=== PATIENT | female | born 1965 | race Caucasian/White ===

== ENCOUNTER 2019-03-03 15:54 | Observation (INO) | payer BC ==
[~2019-03-03] VITALS: Ht 167.6 cm; Wt 74.8 kg
[2019-03-03] MEDS ORDERED: KETOROLAC TROMETHAMINE 30MG/ML ONE (17:32)
[2019-03-03] MEDS ORDERED: SODIUM CHLORIDE 0.9% 1000ML 1,000 ML IV ONE (17:32)
[2019-03-03] MEDS ORDERED: CYCLOBENZAPRINE HCL 10 MG TABLET ONE (17:32)
[2019-03-03 17:35] LABS: EOSINOPHILS % (AUTO) 2.5 % (0.0-8.0); HEMATOCRIT 45.3 % (36-48); LYMPHOCYTES % (AUTO) 26.7 % (21.0-51.0); MEAN CORPUSCULAR HEMOGLOBIN 31.4 pg (27.0-33.0); MEAN CORPUSCULAR HGB CONC 33.7 g/dL (32.0-36.0); MEAN CORPUSCULAR VOLUME 93.2 fL (79-99); MONOCYTES % (AUTO) 5.4 % (3.0-13.0); NEUTROPHILS % (AUTO) 64.4 % (40.0-77.0); NUCLEATED RED BLOOD CELLS 0.1 % (0.0-0.19); PLATELET COUNT (AUTO) 223 K/uL (130-400); RED BLOOD CELL COUNT(AUTO) 4.86 MIL/uL (4.00-5.50); RED CELL DISTRIBUTION WIDTH 14.4 % (11.0-15.5); WHITE BLOOD COUNT (AUTO) 11.8 K/uL (4.8-10.8)
[2019-03-03 17:51] LABS: APPEARANCE,URINE Clear (CLEAR); BILIRUBIN,URINE Negative (NEGATIVE); COLOR,URINE Yellow (YELLOW); GLUCOSE, URINE (UA) Negative (NEGATIVE); KETONES,URINE Negative (NEGATIVE); LEUKOCYTE ESTERASE ,URINE Trace (NEGATIVE); NITRATE,URINE Negative (NEGATIVE); OCCULT BLOOD,URINE Negative (NEGATIVE); PROTEIN,URINE Negative (NEGATIVE); UROBILINOGEN,URINE 0.2 mg/dL (0.2-1.0)
[2019-03-03 17:54] LABS: CREATININE 0.7 mg/dL (0.5-1.5); INR 0.99 (0.85-1.15); PARTIAL THROMBOPLASTIN TIME 31.5 SEC (26.3-35.5); POTASSIUM 4.8 mmol/L (3.5-5.1); PROTHROMBIN TIME 10.4 SEC (9.6-11.6)
[2019-03-03 17:56] LABS: AMMONIA 16 umol/L (11-32)
[2019-03-03 17:56] LABS: AMPHET/METH SCREEN,URINE NEGATIVE (NEGATIVE); BARBITURATE SCREEN, URINE NEGATIVE (NEGATIVE); BENZODIAZEPINES SCREEN,URINE NEGATIVE (NEGATIVE); CANNABINOID SCREEN,URINE NEGATIVE (NEGATIVE); COCAINE SCREEN,URINE NEGATIVE (NEGATIVE); OPIATE SCREEN,URINE NEGATIVE (NEGATIVE); PHENCYCLIDINE SCREEN,URINE NEGATIVE (NEGATIVE)
[2019-03-03 17:58] LABS: BACTERIA,URINE Few /HPF (None Seen); RBC,URINE 0-1 /HPF (0-1); SQUAMOUS EPITHELIAL CELL,UR Few /HPF (0-2)
[2019-03-03 18:05] LABS: ALCOHOL, BLOOD < 3 mg/dL (0-10)
[2019-03-03 18:05] LABS: BILIRUBIN,TOTAL 0.4 mg/dL (0.2-1.0); CRP QUANTITATIVE 9.2 mg/L (0.00-9.0); TOTAL PROTEIN, SERUM 7.5 g/dL (6.0-8.3)
[2019-03-03 18:40] LABS: ERYTHROCYTE SEDIMENTATION RATE 16 MM/HR (0-30)
[2019-03-03] MEDS ORDERED: KETOROLAC TROMETHAMINE 30MG/ML IV PRN (20:00)
[2019-03-03] MEDS: FAMOTIDINE 20MG TAB 20 MG TAB PO SCH (21:00)
[2019-03-03] MEDS ORDERED: IOHEXOL-350 75 ML VIAL IV ONE (21:16)
[2019-03-03] MEDS ORDERED: PREGABALIN 75 MG CAPSULE ONE (22:33)
--- NOTE | 2019-03-03 23:00 | NUR ---
REPORT RECEIVED FROM HANS PEÑA
[2019-03-03 23:34] VITALS: BP 107/65
--- NOTE | 2019-03-03 23:40 | NUR ---
PT ARRIVED FROM ER. PT IS STABLE. NO DISTRESS NOTED. AA03. PERRLA. AT THE MOMENT NOT EXPERIENCING ANY HEADACHE. STATES SHE FEELS BETTER. WAS GIVEN TORADOL AND FLEXOR IN THE ER. TAKES LYRICA AND WAS GIVEN A DOSE IN THE ER. ABLE TO AMBULATE. HOME MEDS RESUMES PER HOSPITALIST RN [employer].
[2019-03-04] MEDS: SODIUM CHLORIDE 0.9% 1000ML 3,000 ML IV SCH ×2 (00:11→04:11)
[2019-03-04] MEDS ORDERED: AEC81 PO (00:44)
[2019-03-04] MEDS ORDERED: DULO60CA64 PO (00:44)
[2019-03-04] MEDS ORDERED: PREG50 PO ×2 (00:44)
[2019-03-04] MEDS ORDERED: ROSU5TAB12 PO (00:44)
[2019-03-04 03:18] VITALS: BP 112/74
[2019-03-04] MEDS ORDERED: CYCLOBENZAPRINE HCL 10 MG TABLET PO ONE (03:30)
[2019-03-04] MEDS ORDERED: CYCLOBENZAPRINE HCL 10 MG TABLET ONE (03:34)
[2019-03-04 04:03] LABS: CREATININE 0.7 mg/dL (0.5-1.5)
[2019-03-04 04:08] LABS: ALBUMIN 3.1 g/dL (3.5-5.0); BILIRUBIN,TOTAL 0.2 mg/dL (0.2-1.0); CRP QUANTITATIVE 7.3 mg/L (0.00-9.0); TOTAL PROTEIN, SERUM 5.8 g/dL (6.0-8.3)
[2019-03-04 04:11] LABS: BASOPHILS % (AUTO) 0.9 % (0.0-5.0); EOSINOPHILS % (AUTO) 3.3 % (0.0-8.0); HEMATOCRIT 38.6 % (36-48); LYMPHOCYTES % (AUTO) 37.4 % (21.0-51.0); MEAN CORPUSCULAR HEMOGLOBIN 31.8 pg (27.0-33.0); MEAN CORPUSCULAR HGB CONC 34.2 g/dL (32.0-36.0); NEUTROPHILS % (AUTO) 51.4 % (40.0-77.0); PLATELET COUNT (AUTO) 226 K/uL (130-400); RED BLOOD CELL COUNT(AUTO) 4.15 MIL/uL (4.00-5.50); RED CELL DISTRIBUTION WIDTH 14.1 % (11.0-15.5); WHITE BLOOD COUNT (AUTO) 10.7 K/uL (4.8-10.8)
[2019-03-04 05:10] LABS: ERYTHROCYTE SEDIMENTATION RATE 10 MM/HR (0-30)
[2019-03-04 07:07] VITALS: BP 114/69
--- NOTE | 2019-03-04 07:50 | NUR ---
ASSESSMENT PT IS AAOX4 DENIES CP DENIES SOB DENIES NV NO COMPLAINTS, RESTING IN BED. AM MEDS GIVEN. DR Angela ROMEO.
[2019-03-04] MEDS: FAMOTIDINE 20MG TAB 20 MG TAB PO SCH (08:00)
[2019-03-04] MEDS ORDERED: DULOXETINE HCL 30 MG CAP PO SCH (09:00)
[2019-03-04] MEDS ORDERED: ASPIRIN 81 MG EC TAB PO SCH (09:00)
[2019-03-04] MEDS ORDERED: PREDNISONE 20 MG TABLET PO SCH (09:00)
[2019-03-04] MEDS ORDERED: PREGABALIN 25 MG CAP PO SCH (09:00)
[2019-03-04 11:00] VITALS: BP 116/67
--- NOTE | 2019-03-04 12:34 | NUR ---
AMBULATED IN HALLS WITH CANE, GAIT IS STEADY DENIES DIZZINESS NO COMPLAINTS. BACK TO CHAIR.
--- NOTE | 2019-03-04 13:20 | NUR ---
DISCHARGE TO HOME PATIENT VERBALIZES DC INSTRUCTIONS UNDERSTANDING, AGREE TO TAKE MEDS ORDERED AND FOLLOW UP WITH MD OUTPATIENT, PIVS REMOVED CATH TIPS INTACT, TELE PACK REMOVED. AWAITING RIDE.
--- NOTE | 2019-03-04 13:45 | NUR ---
DISCHARGE TO HOME DOWN VIA WC WITH NURSE AIDE TO VEHICLE. ALL BELONGINGS TAKEN
[2019-03-04] MEDS ORDERED: Rosuvastatin Calcium 5 MG PO SCH (21:00)
[2019-03-04] MEDS ORDERED: PREGABALIN 100 MG CAPSULE PO SCH (21:00)
== END 2019-03-04 14:00 | disposition home or self-care (01) ==
LOC: EDH 15:54 → EDHIP 19:38 → 2AH 23:04
PROVIDERS: ADMIT Hospitalist; ATTEND Hospitalist
DX: R51 Headache (principal); D72.829 Elevated white blood cell count, unspecified; E78.5 Hyperlipidemia, unspecified; E86.0 Dehydration; Z96.649 Presence of unspecified artificial hip joint; Z96.659 Presence of unspecified artificial knee joint; Z79.01 Long term (current) use of anticoagulants; Z79.899 Other long term (current) drug therapy
CPT/HCPCS: 36415 ×2; 70450; 70496; 70498; 71045; 72125; 80053 ×2; 80305; 81001; 82140; 82550; 84484; 85025 ×2; 85610; 85651 ×2; 85730; 86140 ×2; 87088; 93005; 96360; 96361; 97039; 97116; 97161; 99283; G0378 ×18; G0480; G8978; G8979; G8980; G8981; G8982; G8983; J1885; J7030; Q9967

== ENCOUNTER → 2024-03-02 | Outpatient (CLI) | payer BC ==
[~2024-03-02] MED LIST: AEC81 PO; DULO60CA64 PO; PREG50 PO; ROSU5TAB43 PO
== END | disposition home or self-care (01) ==
LOC: RAH 11:44
PROVIDERS: ATTEND Physical Medicine & Rehabilitation
DX: M51.36 Other intervertebral disc degeneration, lumbar region (principal); T84.031A Mechanical loosening of internal left hip prosthetic joint, initial encounter; Y82.8 Other medical devices associated with adverse incidents
CPT/HCPCS: 72114; 73502